=== PATIENT | male | born 1955 | race Caucasian/White ===

== ENCOUNTER 2019-07-26 17:27 | Inpatient (IN) | payer OTHER ==
[~2019-07-26] VITALS: Ht 190.5 cm; Wt 95.3 kg
[~2019-07-26 17:27] MED LIST: APAP/HYDROCODON1 T13 PO; ASPIR 8181 MG PO; CLINDAMYCIN HC300 MG PO; COL100 PO; KEFLEX500 MG PO; SERO100 PO; ZES20 PO; ZOC20 PO
[2019-07-26 18:48] LABS: BASOPHIL % 0.4 % (0-2)
[2019-07-26 18:50] LABS: PLATELET COUNT 118 x10^3mcL (130-400); RED CELL DISTRIBUTION WIDTH 15.1 % (11.5-14.5)
[2019-07-26 19:31] LABS: CARBON DIOXIDE 25.8 mmol/L (21-32); CHLORIDE SERUM 96 mmol/L (98-107); GLUCOSE SERUM 101 mg/dL (74-106); POTASSIUM SERUM 3.8 mmol/L (3.5-5.1); SODIUM SERUM 131 mmol/L (136-145)
[2019-07-26 19:32] LABS: ALKALINE PHOSPHATASE 89 U/L (46-116); ALT/SGPT 40 U/L (16-63); AST/SGOT 27 U/L (15-37); BILIRUBIN TOTAL 0.8 mg/dL (0.20-1.00); CALCIUM 8.5 mg/dL (8.5-10.1); CREATININE SERUM 1.1 mg/dL (0.7-1.3); GFR1 > 60 mL/min; TOTAL PROTEIN, SERUM 7.6 g/dL (6.4-8.2)
[2019-07-26 23:25] LABS: CHOLESTEROL/HDL RATIO 8.7; MAGNESIUM 2.2 mg/dL (1.8-2.4); PHOSPHOROUS 2.7 mg/dL (2.5-4.9)
[2019-07-26 23:44] LABS: FREE T4 1.14 ng/dL (0.76-1.46); FREE THYROXINE INDEX 2.3 ug/dL (1.4-4.5); T4(THYROXINE) 6.6 ug/dL (4.7-13.3)
[2019-07-27 00:08] VITALS: BP 119/83
[2019-07-27] MEDS ORDERED: SERO100 PO (00:17)
[2019-07-27 00:19] VITALS: Ht 190.5 cm; Wt 95.3 kg
[2019-07-27 00:26] LABS: T3 TOTAL 0.8 ng/mL
[2019-07-27 05:49] VITALS: BP 117/63
[2019-07-27 06:50] LABS: CALCIUM 8.1 mg/dL (8.5-10.1); CARBON DIOXIDE 26.7 mmol/L (21-32); CHLORIDE SERUM 96 mmol/L (98-107); CREATININE SERUM 1.1 mg/dL (0.7-1.3); GFR1 > 60 mL/min; GLUCOSE SERUM 101 mg/dL (74-106); POTASSIUM SERUM 3.5 mmol/L (3.5-5.1); SODIUM SERUM 132 mmol/L (136-145)
[2019-07-27 07:08] LABS: BASOPHIL % 0.1 % (0-2)
[2019-07-27 07:20] LABS: PLATELET COUNT 112 x10^3mcL (130-400); RED CELL DISTRIBUTION WIDTH 15.6 % (11.5-14.5)
[2019-07-27 08:42] VITALS: BP 110/70
[2019-07-27 12:53] VITALS: BP 110/73
[2019-07-27 16:24] VITALS: BP 113/71
[2019-07-27 17:06] LABS: UA SPECIFIC GRAVITY 1.025 (1.005-1.035); microscopic required? YES; urine erythrocyte 1+ (NEGATIVE)
[2019-07-27 17:36] LABS: AMPHETAMINE QUAL UR POSITIVE (See below)
[2019-07-27 20:30] VITALS: BP 119/67
[2019-07-28] VITALS (7 sets, daily range): BP systolic 115–138; BP diastolic 76–91
[2019-07-28 06:57] LABS: CARBON DIOXIDE 27.4 mmol/L (21-32); CHLORIDE SERUM 96 mmol/L (98-107); GLUCOSE SERUM 96 mg/dL (74-106); SODIUM SERUM 131 mmol/L (136-145)
[2019-07-28 06:58] LABS: BASOPHIL % 0 % (0-2); CALCIUM 8.5 mg/dL (8.5-10.1); CREATININE SERUM 1.1 mg/dL (0.7-1.3); GFR1 > 60 mL/min; PHOSPHOROUS 3.1 mg/dL (2.5-4.9); PLATELET COUNT 126 x10^3mcL (130-400); RED CELL DISTRIBUTION WIDTH 14.9 % (11.5-14.5)
[2019-07-29 06:11] VITALS: BP 112/73
[2019-07-29 06:31] LABS: PLATELET COUNT 134 x10^3mcL (130-400)
[2019-07-29 06:51] LABS: BASOPHIL % 0 % (0-2); RED CELL DISTRIBUTION WIDTH 15.6 % (11.5-14.5)
[2019-07-29 07:01] LABS: CARBON DIOXIDE 24.6 mmol/L (21-32); GLUCOSE SERUM 93 mg/dL (74-106); POTASSIUM SERUM 4.1 mmol/L (3.5-5.1); SODIUM SERUM 131 mmol/L (136-145)
[2019-07-29 07:02] LABS: CALCIUM 8.4 mg/dL (8.5-10.1); CREATININE SERUM 1.1 mg/dL (0.7-1.3); GFR1 > 60 mL/min; PHOSPHOROUS 3.1 mg/dL (2.5-4.9)
[2019-07-29 08:10] VITALS: BP 111/75
[2019-07-29 17:06] VITALS: BP 99/65
[2019-07-29 20:30] VITALS: BP 113/68
[2019-07-30 05:29] VITALS: BP 120/75
[2019-07-30 07:55] LABS: BASOPHIL % 0.2 % (0-2); PLATELET COUNT 153 x10^3mcL (130-400)
[2019-07-30 08:05] LABS: RED CELL DISTRIBUTION WIDTH 15.9 % (11.5-14.5)
[2019-07-30 08:47] LABS: CARBON DIOXIDE 27.3 mmol/L (21-32); CHLORIDE SERUM 98 mmol/L (98-107); GFR1 > 60 mL/min; GLUCOSE SERUM 93 mg/dL (74-106); POTASSIUM SERUM 3.9 mmol/L (3.5-5.1); SODIUM SERUM 135 mmol/L (136-145)
[2019-07-30 08:48] LABS: CALCIUM 8.6 mg/dL (8.5-10.1); MAGNESIUM 2.4 mg/dL (1.8-2.4)
[2019-07-30 09:03] VITALS: BP 106/73
[2019-07-30 13:28] VITALS: BP 103/71
[2019-07-30 20:00] VITALS: BP 111/70
[2019-07-31 05:34] VITALS: BP 116/72
[2019-07-31 06:35] LABS: BASOPHIL % 0.4 % (0-2); PLATELET COUNT 169 x10^3mcL (130-400)
[2019-07-31 07:09] LABS: RED CELL DISTRIBUTION WIDTH 15.7 % (11.5-14.5)
[2019-07-31 07:19] LABS: CALCIUM 8.6 mg/dL (8.5-10.1); CARBON DIOXIDE 26.7 mmol/L (21-32); CHLORIDE SERUM 100 mmol/L (98-107); GFR1 > 60 mL/min; GLUCOSE SERUM 98 mg/dL (74-106); MAGNESIUM 2.3 mg/dL (1.8-2.4); PHOSPHOROUS 3.9 mg/dL (2.5-4.9); POTASSIUM SERUM 3.9 mmol/L (3.5-5.1); SODIUM SERUM 134 mmol/L (136-145)
[2019-07-31 08:16] VITALS: BP 114/80
[2019-07-31 12:08] VITALS: BP 99/81
[2019-07-31 16:18] VITALS: BP 111/80
[2019-07-31 20:24] VITALS: BP 105/77
[2019-08-01 05:20] VITALS: BP 101/68
[2019-08-01 06:12] LABS: BASOPHIL % 0.2 % (0-2); PLATELET COUNT 186 x10^3mcL (130-400)
[2019-08-01 07:02] LABS: RED CELL DISTRIBUTION WIDTH 15.7 % (11.5-14.5)
[2019-08-01 07:55] LABS: CALCIUM 9.1 mg/dL (8.5-10.1); CARBON DIOXIDE 22.8 mmol/L (21-32); CHLORIDE SERUM 102 mmol/L (98-107); GFR1 > 60 mL/min; GLUCOSE SERUM 98 mg/dL (74-106); POTASSIUM SERUM 4.1 mmol/L (3.5-5.1); SODIUM SERUM 136 mmol/L (136-145)
[2019-08-01 08:32] VITALS: BP 105/76
[2019-08-01 13:00] VITALS: BP 101/72
[2019-08-01 17:00] VITALS: BP 100/72
== END 2019-08-01 18:50 | DRG 602 ==
LOC: ED 17:27 → DU 22:18
PROVIDERS: Emergency Medicine; Student in an Organized Health Care Education/Training Program; ADMIT Internal Medicine
DX: L03.115 Cellulitis of right lower limb (principal); A41.9 Sepsis, unspecified organism; E44.0 Moderate protein-calorie malnutrition; E87.1 Hypo-osmolality and hyponatremia; I10 Essential (primary) hypertension; E83.51 Hypocalcemia; I73.9 Peripheral vascular disease, unspecified; F15.10 Other stimulant abuse, uncomplicated; F12.10 Cannabis abuse, uncomplicated; E78.5 Hyperlipidemia, unspecified; G47.00 Insomnia, unspecified; Z79.82 Long term (current) use of aspirin; Z89.411 Acquired absence of right great toe; Z68.26 Body mass index [BMI] 26.0-26.9, adult; F17.210 Nicotine dependence, cigarettes, uncomplicated
CPT/HCPCS: 83880; 84439; 97110-GP; 97112-GP; 97530-GP; 99406; G0378; J0692; J0696; J1630; J1644; J1940; J2060; J2270; J2405; J3370; J3490; J7030; J7050; J7060; Q0092